=== PATIENT | male | born 1995 | race Caucasian/White ===

== ENCOUNTER 2017-08-26 20:47 | Emergency (ER) | payer OTHER ==
[2017-08-26] MEDS ORDERED: Ofloxacin 0.3% Ophth Soln 5 ML Bottle EARLF SCH (21:15)
[2017-08-26] MEDS ORDERED: Sulfamethoxazole/Trimethoprim 800-160 MG Tab PO ONE (21:16)
[2017-08-26] MEDS ORDERED: Ibuprofen 600 MG Tab PO ONE (21:24)
--- NOTE | 2017-08-26 21:24 | EDM.PDOC ---
ED HPI GENERAL MEDICAL PROBLEM - General Chief Complaint: ENT Problem Stated Complaint: EAR INFECTION PUSS AND DISCHARGE Time Seen by Provider: 08/26/17 21:05 Source of Information: Reports: Patient History Limitations: Reports: No Limitations - History of Present Illness INITIAL COMMENTS - FREE TEXT/NARRATIVE: Raphael is a 22yo male presented ambulatory to ED [facility] for complaints of left ear pain and drainage. Pain started "a few days ago", drainage started this evening. He states he has had tubes in his ears, bilaterally for "a couple of years". He denies c/o f/c/s, no n/v/d. He has had a headache today, no sinus pain/pressure, no sore throat and no cough/SOB/wheezing. [place] is in [place] from [place], living in [place]. States he has an ENT in [place] and cannot remember the last time he was seen there. He is unusual in behavior, crying off and on during our visit. He states because his ear is hurting him. He denies that there is anything else going on or that he is concerned of today. Onset: Today Location: Reports: Head (left ear) Quality: Reports: Stabbing, Throbbing Improves with: Reports: None Worsens with: Reports: None Associated Symptoms: Reports: Headaches. Denies: Cough, Fever/Chills, Nausea/ Vomiting Left Ear Pain Score (Numeric/FACES): 8 - Related Data Allergies Allergy/AdvReac Type Severity Reaction Status Date / Time Penicillins Allergy Other Verified 08/26/17 21:08 Home Meds: Home Meds . [No Known Home Meds] 08/26/17 [History] ED ROS ENT - Review of Systems Review Of Systems: See Below Constitutional: Reports: No Symptoms HEENT: Reports: Ear Discharge, Ear Pain. Denies: Rhinitis, Sinus Problem, Throat Pain Respiratory: Reports: No Symptoms Cardiovascular: Reports: No Symptoms GI/Abdominal: Reports: No Symptoms Neurological: Reports: No Symptoms ED EXAM, ENT - Physical Exam Exam: See Below Exam Limited By: No Limitations General Appearance: Alert, WD/WN, No Apparent Distress Eye Exam: Bilateral Eye: Conjunctival Injection, EOMI, PERRL Ears: Canal Discharge (yellow purulent), Canal Foreign Body (purulent drainage) , Canal Material (yellow purulent matter), TM Perforation (difficult to tell if tube is present or if perforation- I believe this is perforation), Other ( debris cleared with sterile qtip, culture obtained of drainage/material). No: Auricular Erythema, Mastoid Swelling, Mastoid Tenderness, Canal Blood Nose: Normal Inspection, Normal Mucousa Mouth/Throat: Normal Inspection, Normal Gums, Normal Lips, Normal Oropharynx Head: Atraumatic, Normocephalic Neck: Normal Inspection, Supple. No: Lymphadenopathy (L), Lymphadenopathy (R) Respiratory/Chest: No Respiratory Distress, Lungs Clear, Normal Breath Sounds Cardiovascular: Regular Rate, Rhythm, No Murmur GI/Abdominal: Normal Bowel Sounds, Soft (Male) Exam: Deferred Rectal (Males) Exam: Deferred Extremities: Normal Inspection, Normal Capillary Refill Neurological: Alert, Oriented, Normal Cognition Psychiatric: Tearful Skin: Warm, Dry, Intact Course - Vital Signs Last Recorded V/S: Last Vital Signs Temp 96.7 F 08/26/17 20:55 Pulse 89 08/26/17 20:55 Resp 18 08/26/17 20:55 BP 138/91 H 08/26/17 20:55 Pulse Ox 99 08/26/17 20:55 - Orders/Labs/Meds Orders: Active Orders 24 hr Category Date Time Status Ofloxacin [Ocuflox 0.3% Ophth Soln] Med 08/26/17 21:15 Active 10 ml EARLF DAILY Medication Orders Ofloxacin (Ocuflox 0.3% Ophth Soln) 10 ml EARLF DAILY PENG Meds: Medications Generic Name Dose Route Start Last Admin Trade Name Freq PRN Reason Stop Dose Admin Ofloxacin 10 ml 08/26/17 21:15 Ocuflox 0.3% Ophth Soln EARLF DAILY PENG Discontinued Medications Generic Name Dose Route Start Last Admin Trade Name Freq PRN Reason Stop Dose Admin Trimethoprim/Sulfamethoxazole 1 tab 08/26/17 21:16 Septra Ds PO 08/26/17 21:17 ONETIME ONE - Re-Assessments/Exams Free Text/Narrative Re-Assessment/Exam: 08/26/17 21:33 discussion with patient re: reason for tears, he states he is in pain with his ear. Offered IM toradol, he defers. He inquires about prescription pain medication, I tell him ibuprofen should suffice. Review medications rx'd including otic drops and oral abx. Recommend he establish care with PCP in [facility] as he is close to there for work and his housing arrangements. Recommend he also establish with ENT for chronic ear problems. Departure - Departure Time of Disposition: 21:20 Disposition: Home, Self-Care 01 Condition: Good Clinical Impression: Otitis media Qualifiers: Otitis media type: suppurative Chronicity: acute Laterality: left Recurrence: not specified as recurrent Spontaneous tympanic membrane rupture: without spontaneous rupture Qualified Code(s): H66.002 - Acute suppurative otitis media without spontaneous rupture of ear drum, left ear - Discharge Information Instructions: Ear Drainage, [id number], Otitis Media, Adult, [id number] Referrals: PCP,None [Primary Care Provider] - Forms: ED Department Discharge Additional Instructions: Instymed rx for Bactrim DS 1 tab twice daily x 10 days Ofloxacin otic drops 10 drops to left ear daily x 10 days Ibuprofen 600-800mg 3 times daily with food for pain Do not wear ear plugs for 2 weeks Avoid submerging head in water for 2 weeks Follow up/establish care with local Primary Care Provider- recommend in [place], [facility]; need follow up within 7-10 days for recheck of ear. If you do not return to [place] within a few weeks recommend establish care with ENT specialist for recheck of ears. Return to ER if needed for concerns or questions. - My Orders Last 24 Hours: My Active Orders 08/26/17 21:15 Ofloxacin [Ocuflox 0.3% Ophth Soln] 10 ml EARLF DAILY - Assessment/Plan Last 24 Hours: My Active Orders 08/26/17 21:15 Ofloxacin [Ocuflox 0.3% Ophth Soln] 10 ml EARLF DAILY
== END 2017-08-26 21:35 | disposition home or self-care (01) ==
LOC: JD.ED 20:47
DX: H66.002 Acute suppurative otitis media without spontaneous rupture of ear drum, left ear (principal); Z88.0 Allergy status to penicillin
CPT/HCPCS: 87070; 99283; A9270